=== PATIENT | female | born 1995 | race Caucasian/White ===

== ENCOUNTER → 2020-08-11 | Outpatient (REF) | payer OTHER | LOC: M LAB REF 11:15 | PROVIDERS: ATTEND Obstetrics & Gynecology | DX: Z32.01 Encounter for pregnancy test, result positive (principal) ==

== ENCOUNTER → 2020-08-12 | Outpatient (CLI) | payer OTHER ==
[2020-08-12 14:06] LABS: HEMATOCRIT 37.8 % (36.0-47.0); HEMOGLOBIN 11.9 g/dl (12.0-15.5); MEAN CORPUSCULAR HEMOGLOBIN 28.3 pg (27.0-33.0); MEAN CORPUSCULAR HGB CONC 31.5 g/dl (32.0-36.5); PLATELET COUNT, AUTOMATED 364 10^3/uL (150-450); WHITE BLOOD COUNT 12.7 10^3/uL (4.0-10.0)
[2020-08-12 15:36] LABS: HCG, SERUM QUANTITATIVE 7290 MIU/ML; HEPATITIS B SURFACE ANTIGEN NEGATIVE (NEGATIVE); HIV 1&2 SCREEN CENTAUR NEGATIVE (NEGATIVE)
[2020-08-12 18:32] LABS: HEMOGLOBIN A1c 5.3 %
== END ==
LOC: M LAB 13:19
PROVIDERS: ATTEND Obstetrics & Gynecology
DX: Z32.01 Encounter for pregnancy test, result positive (principal)

== ENCOUNTER → 2020-08-14 | Outpatient (CLI) | payer OTHER ==
--- NOTE | 2020-08-14 14:53 | REP ---
INDICATION: DATING/VIABILITY. Supervision of COMPARISON: None. TECHNIQUE: Transabdominal obstetric sonography. Transvaginal scanning is also included. FINDINGS: Scanning through the gravid uterus demonstrates a single intrauterine gestation in a free-floating lie. No motion or cardiac motion was observed at transabdominal or transvaginal imaging consistent with intrauterine demise. The crown-rump length of the embryonic pole is 1.9 cm. This would correlate with an 8 week 3 day gestational age estimate. Closed cervical length is measured at 4.4 cm. IMPRESSION: Intrauterine demise at 8 weeks 3 days by crown-rump length. No cardiac motion or pole motion seen. No extra uterine abnormality. <Electronically signed by Darian Fischer > 08/14/20 [id number]
== END ==
LOC: M WHC 13:35
PROVIDERS: ATTEND Obstetrics & Gynecology
DX: O36.4XX0 Maternal care for intrauterine death, not applicable or unspecified (principal); Z3A.08 8 weeks gestation of pregnancy

== ENCOUNTER 2020-08-21 12:30 | Emergency (ER) | payer OTHER ==
[~2020-08-21] VITALS: Ht 157.5 cm; Wt 181.4 kg
--- OUTSIDE RECORDS SUMMARY | 2020-08-21 12:39 | CCD ---
Author Author [facility] Organization [facility] Address Unknown Phone Unavailable Care Team Providers Care Parcel Post Truck Driver Name Role Phone Dodard, Leonidas DO Unavailable Unavailable Dodard, Leonidas DO Unavailable Unavailable Dodard, Leonidas DO Unavailable Unavailable Dodard, Leonidas DO Unavailable Unavailable Dodard, Leonidas DO Unavailable Unavailable Dodard, Leonidas DO Unavailable Unavailable Dodard, Leonidas DO Unavailable Unavailable Dodard, Leonidas DO Unavailable Unavailable Dodard, Leonidas DO Unavailable Unavailable Dodard, Leonidas DO Unavailable Unavailable Dodard, Leonidas DO Unavailable Unavailable Dodard, Leonidas DO Unavailable Unavailable Dodard, Leonidas DO Unavailable Unavailable Dodard, Leonidas DO Unavailable Unavailable Dodard, Leonidas DO Unavailable Unavailable Dodard, Leonidas DO Unavailable Unavailable Dodard, Leonidas DO Unavailable Unavailable Dodard, Leonidas DO Unavailable Unavailable Dodard, Leonidas DO Unavailable Unavailable Dodard, Leonidas DO Unavailable Unavailable Dodard, Leonidas DO Unavailable Unavailable Dodard, Leonidas DO Unavailable Unavailable Dodard, Leonidas DO Unavailable Unavailable Dodard, Leonidas DO Unavailable Unavailable Dodard, Leonidas DO Unavailable Unavailable Dodard, Leonidas DO Unavailable Unavailable Dodard, Leonidas DO Unavailable Unavailable Dodard, Leonidas DO Unavailable Unavailable Dodard, Leonidas DO Unavailable Unavailable Dodard, Leonidas DO Unavailable Unavailable Dodard, Leonidas DO Unavailable Unavailable Dodard, Leonidas DO Unavailable Unavailable Dodard, Leonidas DO Unavailable Unavailable Dodard, Leonidas DO Unavailable Unavailable Dodard, Leonidas DO Unavailable Unavailable Dodard, Leonidas DO Unavailable Unavailable Dodard, Leonidas DO Unavailable Unavailable Dodard, Leonidas DO Unavailable Unavailable Dodard, Leonidas DO Unavailable Unavailable Dodard, Leonidas DO Unavailable Unavailable Dodard, Leonidas DO Unavailable Unavailable Dodard, Leonidas DO Unavailable Unavailable Dodard, Leonidas DO Unavailable Unavailable Dodard, Leonidas DO Unavailable Unavailable NO, PCP Unavailable Unavailable Re-disclosure Warning The records that you are about to access may contain information from federally-assisted alcohol or drug abuse programs. If such information is present, then the following federally mandated warning applies: This information has been disclosed to you from records protected by federal confidentiality rules (42 CFR part 2). The federal rules prohibit you from making any further disclosure of this information unless further disclosure is expressly permitted by the written consent of the person to whom it pertains or as otherwise permitted by 42 CFR part 2. A general authorization for the release of medical or other information is NOT sufficient for this purpose. The Federal rules restrict any use of the information to criminally investigate or prosecute any alcohol or drug abuse patient.The records that you are about to access may contain highly sensitive health information, the redisclosure of which is protected by Article 27-F of the [facility] [place] Public Health law. If you continue you may have access to information: Regarding HIV / AIDS; Provided by facilities licensed or operated by the [facility] [place] Office of Mental Health; or Provided by the [facility] [place] Office for People With Developmental Disabilities. If such information is present, then the following [facility] [place] mandated warning applies: This information has been disclosed to you from confidential records which are protected by state law. State law prohibits you from making any further disclosure of this information without the specific written consent of the person to whom it pertains, or as otherwise permitted by law. Any unauthorized further disclosure in violation of state law may result in a fine or skilled nursing sentence or both. A general authorization for the release of medical or other information is NOT sufficient authorization for further disc losure. Allergies and Adverse Reactions Type Description Substance Reaction Status Data Source(s ) No Known Drug Allergies No Known Drug Allergies [facility] No Known Environmental Allergies No Known Environmental Al lergies [facility] No Known Food Allergies No Known Food Allergies [facility] Encounters Encounter Providers Location Date Indications Data Source(s ) Outpatient Attender: Leonidas De Leon DOConsultant: PCP NO 08/21/2020 08:25:18 AM [facility] Outpatient Attender: Leonidas CERONonsultant: PCP NO 08/19/2020 04:22:00 PM EST - 08/19/2020 05:22:00 PM [facility] Outpatient Attender: Leonidas CERONonsultant: PCP NO 08/19/2020 09:52:55 AM EST - 08/20/2020 12:35:00 PM [facility] Patient discharged. Outpatient Attender: Leonidas CERONonsultant: PCP NO 08/19/2020 07:24:14 AM EST - 08/19/2020 01:29:00 PM [facility] l Patient discharged. Insurance Providers Payer name Policy type / Coverage type Policy ID Covered green party ID Covered green party's relationship to umana Policy Umana Plan Information DANNY [id number] SP [id number] 200 [place] [id number] 18 [id number] [place] O [id number] S [id number] Problems, Conditions, and Diagnoses Code Display Name Description Problem Type Effective Dates Data Source(s) R99 Ill-defined and unknown cause of mortali ty Ill-defined and unknown cause of mortality Diagnosis 08/19/2020 01:29:00 PM [facility] Results ID Date Data Source [id number] 08/19/2020 10:14:00 PM [facility] Name Value Range Interpretation Code Description Data Kay rce(s) Supporting Document(s) ABO group [Type] in Blood O [facility] Rh [Type] in Blood POSITIVE [facility] AB SCREEN NEGATIVE NORMAL: NEGATIVE [facility] { ABO/RH REENTER O POSTIIVE{ AB SCREEN RE-ENTER NEGATIVE ID Date Data Source [id number] 08/19/2020 05:00:00 PM [facility] Name Value Range Interpretation Code Description Data Kay rce(s) Supporting Document(s) CBC NO DIFF [facility] ital COMPLETE BLOOD COUNT Leukocytes [#/volume] in Blood by Automated count 13.2 10^3/uL 4.2 - 11.0 H [facility] Erythrocytes [#/volume] in Blood by Automated count 4.17 10^6/uL 4. 20 - 5.40 L [facility] Hemoglobin [Mass/volume] in Blood 12.3 g/dL 12.0 - 16.0 [facility] Hematocrit [Volume Fraction] of Blood by Automated count 37.6 % 3 7.0 - 47.0 [facility] Erythrocyte mean corpuscular volume [Entitic volume] by Auto mated count 90.2 fL 81.0 - 101 [facility] Erythrocyte mean corpuscular hemoglobin [Entitic mass] by Automated count 29.5 pg 27.0 - 34.0 [facility] Erythrocyte mean corpuscular hemoglobin concentration [Mass/volume] by Automated count 32.7 g/dL 31.0 - 36.0 [facility] Erythrocyte distribution width [Ratio] by Automated count 12.9 % 11.5 - 14.5 [facility] Platelets [#/volume] in Blood by Automated count 387 10^3/uL 150 - 45 0 [facility] Platelet mean volume [Entitic volume] in Blood by Automated count 10.0 fL 7.4 - 10.4 [facility] ID Date Data Source [id number] 04/30/2020 12:00:00 AM EDT [facility] Name Value Range Interpretation Code Description Data Kay rce(s) Supporting Document(s) SARS coronavirus 2 RNA [Presence] in Res piratory specimen by TYRELL with probe detection [facility] This lab was ordered by Jayne Burris and reported by [facility]. Procedure
[2020-08-21] MEDS ORDERED: MAPA500C PO (12:44)
[2020-08-21] MEDS ORDERED: KETOROLAC 30 MG/ML 1ML VIAL IV ONE (13:30)
[2020-08-21] MEDS ORDERED: NS 1,000 ML IV ONE (13:30)
--- OUTSIDE RECORDS SUMMARY | 2020-08-21 13:31 | CCD ---
Author Author [facility] Organization [facility] Address Unknown Phone Unavailable Care Team Providers Care Teacher Selection Specialist Name Role Phone Dodard, Leonidas DO Unavailable [...] is protected by Article 27-F of the [facility] Public Health law. If you continue you may have access to information: Regarding HIV / AIDS; Provided by facilities licensed or operated by the [facility] Office of Mental Health; or Provided by the [facility] Office for People With Developmental Disabilities. If such information is present, then the following [facility] mandated warning applies: This information has been [...] law may result in a fine or retirement sentence or both. A general authorization for the release of medical or other information is NOT sufficient authorization for further disc losure. Allergies and Adverse Reactions Type Description Substance Reaction Status Data Source(s ) No Known Drug Allergies No Known Drug Allergies [facility] No Known Environmental Allergies No Known Environmental Al lergies [facility] No Known Food Allergies No Known Food Allergies [facility] Encounters Encounter Providers Location Date Indications Data Source(s ) Outpatient Attender: Leonidas De Leon DOConsultant: PCP NO 08/21/2020 08:25:18 AM [facility] Outpatient Attender: Leonidas CERONonsultant: PCP NO 08/19/2020 04:22:00 PM EST - 08/19/2020 05:22:00 PM [facility] Outpatient Attender: Leonidas CERONonsultant: PCP NO 08/19/2020 09:52:55 AM EST - 08/20/2020 12:35:00 PM [facility] Patient discharged. Outpatient Attender: Leonidas CERONonsultant: PCP NO 08/19/2020 07:24:14 AM EST - 08/19/2020 01:29:00 PM [facility] Patient discharged. Insurance Providers Payer name Policy type / Coverage type Policy ID Covered alliance party ID Covered alliance party's relationship to umana Policy Umana Plan Information DANNY [id number] SP [id number] 200 [place] [id number] 18 [id number] [place] [id number] S [id number] Problems, Conditions, and Diagnoses Code Display Name Description Problem Type Effective Dates Data Source(s) R99 Ill-defined and unknown cause of mortali ty Ill-defined and unknown cause of mortality Diagnosis 08/19/2020 01:29:00 PM [facility] Results ID Date Data Source [id number] 08/19/2020 10:14:00 PM [facility] Name Value Range Interpretation Code Description Data Kay rce(s) Supporting Document(s) ABO group [Type] in Blood O [facility] Rh [Type] in Blood POSITIVE [facility] AB SCREEN NEGATIVE NORMAL: NEGATIVE [facility] { ABO/RH REENTER O POSTIIVE{ AB SCREEN RE-ENTER NEGATIVE ID Date Data Source [id number] 08/19/2020 05:00:00 PM [facility] Name Value Range Interpretation Code Description Data Kay rce(s) Supporting Document(s) CBC NO DIFF [facility] ital COMPLETE BLOOD COUNT Leukocytes [#/volume] in Blood by Automated count 13.2 10^3/uL 4.2 - 11.0 H [facility] Erythrocytes [#/volume] in Blood by Automated count 4.17 10^6/uL 4. 20 - 5.40 L [facility] Hemoglobin [Mass/volume] in Blood 12.3 g/dL 12.0 - 16.0 [facility] Hematocrit [Volume Fraction] of Blood by Automated count 37.6 % 3 7.0 - 47.0 [facility] Erythrocyte mean corpuscular volume [Entitic volume] by Auto mated count 90.2 fL 81.0 - 101 [facility] Erythrocyte mean corpuscular hemoglobin [Entitic mass] by Automated count 29.5 pg 27.0 - 34.0 [facility] Erythrocyte mean corpuscular hemoglobin concentration [Mass/volume] by Automated count 32.7 g/dL 31.0 - 36.0 [facility] Erythrocyte distribution width [Ratio] by Automated count 12.9 % 11.5 - 14.5 [facility] Platelets [#/volume] in Blood by Automated count 387 10^3/uL 150 - 45 0 [facility] Platelet mean volume [Entitic volume] in Blood by Automated count 10.0 fL 7.4 - 10.4 [facility] ID Date Data Source [id number] 04/30/2020 12:00:00 AM EDT [facility] Name Value Range Interpretation Code Description Data Kay rce(s) Supporting Document(s) SARS coronavirus 2 RNA [Presence] in Res piratory specimen by TYRELL with probe detection [facility] This lab was ordered by Jayne Burris and reported by [employer]. Procedure
[2020-08-21 14:05] LABS: BASO # 0.1 10^3/uL (0.0-0.2); BASO % 0.4 % (0.0-1.0); EOS # 0.1 10^3/uL (0.0-0.5); EOS % 0.7 % (0.0-3.0); LYMPH # 2.6 10^3/uL (1.5-5.0); LYMPH % 14.8 % (24.0-44.0); MEAN CORPUSCULAR HEMOGLOBIN 29.3 pg (27.0-33.0); MEAN CORPUSCULAR HGB CONC 32.4 g/dl (32.0-36.5); MEAN CORPUSCULAR VOLUME 90.2 fl (80.0-96.0); MONO # 1.2 10^3/uL (0.0-0.8); MONO % 6.8 % (2.0-8.0); NEUTROPHILS # 13.2 10^3/uL (1.5-8.5); NEUTROPHILS % 76.1 % (36.0-66.0); PLATELET COUNT, AUTOMATED 360 10^3/uL (150-450); WHITE BLOOD COUNT 17.4 10^3/uL (4.0-10.0)
[2020-08-21 15:18] LABS: CHLAMYDIA DNA AMPLIFICATION NEGATIVE (NEGATIVE); GC DNA AMPLIFICATION NEGATIVE (NEGATIVE)
[2020-08-21 16:13] LABS: RSV AMPLIFICATION NEGATIVE (NEGATIVE)
--- NOTE | 2020-08-21 16:34 | REP ---
INDICATION: recently told demise, see if any RPOC. COMPARISON: 08/14/2020. TECHNIQUE: Real-time sonographic evaluation of pelvis performed. FINDINGS: Intrauterine gestational sac is seen containing a pole. The crown-rump length is 19 mm corresponding to an estimated gestational age of 8 weeks 3 days. No heart motion is detected. Findings are consistent with intrauterine demise. The uterus measures 15.5 x 7.4 x 6.5 cm. The ovaries are not visualized. IMPRESSION: Intrauterine demise of a gestational 8 weeks 3 days of age, crown-rump length 19 mm. No heart motion detected. No change since prior study. <Electronically signed by Alvaro Edwards > 08/21/20 [id number]
[2020-08-21 16:40] VITALS: BP 121/59
[2020-08-23] MEDS ORDERED: OXYC1TAB23 PO (12:13)
[2020-08-23] MEDS ORDERED: IBUP80TA PO (12:13)
== END 2020-08-21 16:42 | disposition home or self-care (01) ==
LOC: M ED 12:30
DX: O36.4XX0 Maternal care for intrauterine death, not applicable or unspecified (principal); Z87.891 Personal history of nicotine dependence; O99.321 Drug use complicating pregnancy, first trimester; F12.20 Cannabis dependence, uncomplicated; Z3A.08 8 weeks gestation of pregnancy
CPT/HCPCS: 76801; 80047; 84702; 85025; 86850; 86900; 86901; 87210; 87631; 87661; 96361; 96374; 99284; J1885

== ENCOUNTER → 2020-08-23 | Day surgery (SDC) | payer OTHER ==
[~2020-08-23] VITALS: Ht 157.5 cm; Wt 181.4 kg
[~2020-08-23] MED LIST: ACETAMINOPHEN 1000MG 100ML IV BTL (OFIRMEV) (J0131 PER 10MG) As Ordered ONE; DOXYCYCLINE HYCLATE 100MG TABLET PO ONE; DOXYCYCLINE HYCLATE 100MG/10ML VIAL As Ordered ONE; HYDROMORPHONE HCL 0.5 MG/ 0.5 ML SYRINGE (J1170 PER 1) IV PRN; IBUP80TA PO; KETOROLAC 30 MG/ML 1ML VIAL IV ONE; LIDOCAINE 2% 100MG/5ML SDV (FOR ANES.) As Ordered ONE; LR 1,000 ML IV SCH; MAPA500C PO; METHYLERGONOVINE MALEATE 0.2 MG/ML VIAL (J2210) As Ordered ONE; MIDAZOLAM INJ 2MG/2ML VIAL (J2250 PER 1MG) As Ordered ONE; MORPHINE 4 MG/ML 1ML VIAL/SYRINGE (J2270) IV ONE; NS 1,000 ML IV ONE; ONDANSETRON 4MG/2ML VIAL As Ordered ONE; ONDANSETRON 4MG/2ML VIAL IV ONE; ONDANSETRON 4MG/2ML VIAL IV PRN; OXYC1TAB23 PO; SILVER NITRATE APPLICATOR As Ordered ONE; dexameTHASONE 4 MG/ML 1ML VIAL (J1100 PER 1MG) As Ordered ONE; fentaNYL 100 MCG/2 ML INJECTION (J3010) As Ordered ONE; fentaNYL 100 MCG/2 ML INJECTION (J3010) IV PRN; oxyCODONE 5MG TAB PO PRN; propofoL 200 MG/20 ML VIAL As Ordered ONE
--- OUTSIDE RECORDS SUMMARY | 2020-08-23 07:03 | CCD ---
Author Author [facility] Organization [facility] Address Unknown Phone Unavailable Care Team Providers Care Travel Occupational Therapist Name Role Phone Dodard, Leonidas DO Unavailable [...] is protected by Article 27-F of the [facility] Public Health law. If you continue you may have access to information: Regarding HIV / AIDS; Provided by facilities licensed or operated by the [facility] Office of Mental Health; or Provided by the [facility] Office for People With Developmental Disabilities. If such information is present, then the following [facility] mandated warning applies: This information has been [...] law may result in a fine or prison sentence or both. A general authorization for the release of medical or other information is NOT sufficient authorization for further disc losure. Allergies and Adverse Reactions Type Description Substance Reaction Status Data Source(s ) No Known Drug Allergies No Known Drug Allergies [facility] No Known Environmental Allergies No Known Environmental Al lergies [facility] No Known Food Allergies No Known Food Allergies [facility] Encounters Encounter Providers Location Date Indications Data Source(s ) Outpatient Attender: Leonidas De Leon DOConsultant: PCP NO 08/21/2020 08:25:18 AM [facility] Outpatient Attender: Leonidas CERONonsultant: PCP NO 08/19/2020 04:22:00 PM EST - 08/19/2020 05:22:00 PM [facility] Outpatient Attender: Leonidas CERONonsultant: PCP NO 08/19/2020 09:52:55 AM EST - 08/20/2020 12:35:00 PM [facility] Patient discharged. Outpatient Attender: Leonidas CERONonsultant: PCP NO 08/19/2020 07:24:14 AM EST - 08/19/2020 01:29:00 PM [facility] l Patient discharged. Insurance Providers Payer name Policy type / Coverage type Policy ID Covered constitution party ID Covered constitution party's relationship to umana Policy Umana Plan Information DANNY [id number] SP [id number] 200 [place] [id number] 18 [id number] [place] O [id number] S 74 [id number] Problems, Conditions, and Diagnoses Code Display Name Description Problem Type Effective Dates Data Source(s) R99 Ill-defined and unknown cause of mortali ty Ill-defined and unknown cause of mortality Diagnosis 08/19/2020 01:29:00 PM [facility] Results ID Date Data Source [id number] 08/19/2020 10:14:00 PM [facility] Name Value Range Interpretation Code Description Data Kay rce(s) Supporting Document(s) ABO group [Type] in Blood O [facility] Rh [Type] in Blood POSITIVE [facility] AB SCREEN NEGATIVE NORMAL: NEGATIVE [facility] { ABO/RH REENTER O POSTIIVE{ AB SCREEN RE-ENTER NEGATIVE ID Date Data Source [id number] 08/19/2020 05:00:00 PM [facility] Name Value Range Interpretation Code Description Data Kay rce(s) Supporting Document(s) CBC NO DIFF [facility] ital COMPLETE BLOOD COUNT Leukocytes [#/volume] in Blood by Automated count 13.2 10^3/uL 4.2 - 11.0 H [facility] Erythrocytes [#/volume] in Blood by Automated count 4.17 10^6/uL 4. 20 - 5.40 L [facility] Hemoglobin [Mass/volume] in Blood 12.3 g/dL 12.0 - 16.0 [facility] Hematocrit [Volume Fraction] of Blood by Automated count 37.6 % 3 7.0 - 47.0 [facility] Erythrocyte mean corpuscular volume [Entitic volume] by Auto mated count 90.2 fL 81.0 - 101 [facility] Erythrocyte mean corpuscular hemoglobin [Entitic mass] by Automated count 29.5 pg 27.0 - 34.0 [facility] Erythrocyte mean corpuscular hemoglobin concentration [Mass/volume] by Automated count 32.7 g/dL 31.0 - 36.0 [facility] Erythrocyte distribution width [Ratio] by Automated count 12.9 % 11.5 - 14.5 [facility] Platelets [#/volume] in Blood by Automated count 387 10^3/uL 150 - 45 0 [facility] Platelet mean volume [Entitic volume] in Blood by Automated count 10.0 fL 7.4 - 10.4 [facility] ID Date Data Source [id number] 04/30/2020 12:00:00 AM EDT [facility] Name Value Range Interpretation Code Description Data Kay rce(s) Supporting Document(s) SARS coronavirus 2 RNA [Presence] in Res piratory specimen by TYRELL with probe detection [facility] This lab was ordered by Jayne Burris and reported by [employer]. Procedure
--- OUTSIDE RECORDS SUMMARY | 2020-08-23 08:02 | CCD ---
Author Author [facility] Organization [facility] Address Unknown Phone Unavailable Care Team Providers Care Research Program Manager Name Role Phone Dodard, Leonidas DO Unavailable [...] is protected by Article 27-F of the [facility] Public Health law. If you continue you may have access to information: Regarding HIV / AIDS; Provided by facilities licensed or operated by the [facility] Office of Mental Health; or Provided by the [facility] Office for People With Developmental Disabilities. If such information is present, then the following [facility] mandated warning applies: This information has been [...] law may result in a fine or long term sentence or both. A general authorization for the release of medical or other information is NOT sufficient authorization for further disc losure. Allergies and Adverse Reactions Type Description Substance Reaction Status Data Source(s ) No Known Drug Allergies No Known Drug Allergies [facility] No Known Environmental Allergies No Known Environmental Al lergies [facility] No Known Food Allergies No Known Food Allergies [facility] Encounters Encounter Providers Location Date Indications Data Source(s ) Outpatient Attender: Leonidas De Leon DOConsultant: PCP NO 08/21/2020 08:25:18 AM [facility] Outpatient Attender: Leonidas CERONonsultant: PCP NO 08/19/2020 04:22:00 PM EST - 08/19/2020 05:22:00 PM [facility] Outpatient Attender: Leonidas CERONonsultant: PCP NO 08/19/2020 09:52:55 AM EST - 08/20/2020 12:35:00 PM [facility] Patient discharged. Outpatient Attender: Leonidas CERONonsultant: PCP NO 08/19/2020 07:24:14 AM EST - 08/19/2020 01:29:00 PM [facility] l Patient discharged. Insurance Providers Payer name Policy type / Coverage type Policy ID Covered democrat ID Covered democrat's relationship to umana Policy Umana Plan Information DANNY [id number] SP [id number] 200 [place] [id number] 18 [id number] [place] O [id number] S [id number] Problems, Conditions, and Diagnoses Code Display Name Description Problem Type Effective Dates Data Source(s) R99 Ill-defined and unknown cause of mortali ty Ill-defined and unknown cause of mortality Diagnosis 08/19/2020 01:29:00 PM [facility] Results ID Date Data Source [id number] 08/19/2020 10:14:00 PM [facility] Name Value Range Interpretation Code Description Data Kay rce(s) Supporting Document(s) ABO group [Type] in Blood O [facility] Rh [Type] in Blood POSITIVE [facility] AB SCREEN NEGATIVE NORMAL: NEGATIVE [facility] { ABO/RH REENTER O POSTIIVE{ AB SCREEN RE-ENTER NEGATIVE ID Date Data Source [id number] 08/19/2020 05:00:00 PM [facility] Name Value Range Interpretation Code Description Data Kay rce(s) Supporting Document(s) CBC NO DIFF [facility] ital COMPLETE BLOOD COUNT Leukocytes [#/volume] in Blood by Automated count 13.2 10^3/uL 4.2 - 11.0 H [facility] Erythrocytes [#/volume] in Blood by Automated count 4.17 10^6/uL 4. 20 - 5.40 L [facility] Hemoglobin [Mass/volume] in Blood 12.3 g/dL 12.0 - 16.0 [facility] Hematocrit [Volume Fraction] of Blood by Automated count 37.6 % 3 7.0 - 47.0 [facility] Erythrocyte mean corpuscular volume [Entitic volume] by Auto mated count 90.2 fL 81.0 - 101 [facility] Erythrocyte mean corpuscular hemoglobin [Entitic mass] by Automated count 29.5 pg 27.0 - 34.0 [facility] Erythrocyte mean corpuscular hemoglobin concentration [Mass/volume] by Automated count 32.7 g/dL 31.0 - 36.0 [facility] Erythrocyte distribution width [Ratio] by Automated count 12.9 % 11.5 - 14.5 [facility] Platelets [#/volume] in Blood by Automated count 387 10^3/uL 150 - 45 0 [facility] Platelet mean volume [Entitic volume] in Blood by Automated count 10.0 fL 7.4 - 10.4 [facility] ID Date Data Source [id number] 04/30/2020 12:00:00 AM EDT [facility] Name Value Range Interpretation Code Description Data Kay rce(s) Supporting Document(s) SARS coronavirus 2 RNA [Presence] in Res piratory specimen by TYRELL with probe detection [facility] This lab was ordered by Jayne Burris and reported by [employer]. Procedure
[2020-08-23 08:04] LABS: BASO # 0.1 10^3/uL (0.0-0.2); BASO % 0.4 % (0.0-1.0); EOS # 0.1 10^3/uL (0.0-0.5); EOS % 0.7 % (0.0-3.0); HEMATOCRIT 37.2 % (36.0-47.0); HEMOGLOBIN 11.5 g/dl (12.0-15.5); LYMPH # 1.4 10^3/uL (1.5-5.0); LYMPH % 10.5 % (24.0-44.0); MEAN CORPUSCULAR HEMOGLOBIN 28.2 pg (27.0-33.0); MEAN CORPUSCULAR HGB CONC 30.9 g/dl (32.0-36.5); MEAN CORPUSCULAR VOLUME 91.2 fl (80.0-96.0); MONO # 0.7 10^3/uL (0.0-0.8); MONO % 5.4 % (2.0-8.0); NEUTROPHILS # 10.7 10^3/uL (1.5-8.5); NEUTROPHILS % 81.2 % (36.0-66.0); PLATELET COUNT, AUTOMATED 317 10^3/uL (150-450); RED BLOOD COUNT 4.08 10^6/uL (4.00-5.40); WHITE BLOOD COUNT 13.1 10^3/uL (4.0-10.0)
[2020-08-23 08:36] LABS: BLOOD UREA NITROGEN 12 MG/DL (7-18); CALCIUM LEVEL 8.6 MG/DL (8.5-10.1); CARBON DIOXIDE LEVEL 24 MEQ/L (21-32); CHLORIDE LEVEL 107 MEQ/L (98-107); CREATININE FOR GFR 0.78 MG/DL (0.55-1.30); GLOMERULAR FILTRATION RATE > 60.0 (>60); GLUCOSE, FASTING 125 MG/DL (70-100); HCG, SERUM QUANTITATIVE 399 MIU/ML; POTASSIUM SERUM 3.7 MEQ/L (3.5-5.1); SODIUM LEVEL 141 MEQ/L (136-145)
--- NOTE | 2020-08-23 09:30 | REP ---
INDICATION: known demise, worsening bleeding, severe pain. COMPARISON: Comparison sonographic findings August 14, 2020 and August 21, 2020.. TECHNIQUE: Transabdominal scanning is performed. FINDINGS: Enlarged uterus is seen with dimensions of 16.1 x 6.1 x 8.8 cm. In the fundus, endometrium is somewhat thickened 2.4 cm. There is a oval-shaped anechoic sac-like structure distending the lower uterine segment and cervical endometrium measuring 8.6 x 2.6 x 1.7 cm. Hypoechoic to anechoic fluid is seen within this. No parts are noted. Findings most compatible with incomplete AB. Neither ovary could be seen transabdominally. No free fluid is noted. IMPRESSION: Findings consistent with incomplete AB in progress. 8.6 x 2.6 x 1.7 cm sac like structure distending the lower uterine segment and cervical endometrium. Embryonic pole no longer visible. <Electronically signed by Darian Fischer > 08/23/20 0948
--- OUTSIDE RECORDS SUMMARY | 2020-08-23 10:49 | CCD ---
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 If you continue you may have access to information: Regarding HIV / AIDS; Provided by facilities licensed or operated by the [facility] Office of Mental Health; or Provided by the [facility] Office for People With Developmental Disabilities. If such information is present, then the following [facility] mandated warning applies: This information has [...] law may result in a fine or custodial sentence or both. A general authorization for the release of medical or other information is NOT sufficient authorization for further disc losure. Allergies and Adverse Reactions Type Description Substance Reaction Status Data Source(s ) No Known Drug Allergies No Known Drug Allergies [facility] No Known Environmental Allergies No Known Environmental Al lergies [facility] No Known Food Allergies No Known Food Allergies [facility] Encounters Encounter Providers Location Date Indications Data Source(s ) Outpatient Attender: Leonidas De Leon DOConsultant: PCP NO 08/21/2020 08:25:18 AM [facility] Outpatient Attender: Leonidas De Leon DOConsultant: PCP NO 08/19/2020 04:22:00 PM EST - 08/19/2020 05:22:00 PM EST [facility] Outpatient Attender: Leonidas CERONonsultant: PCP NO 08/19/2020 09:52:55 AM EST - 08/20/2020 12:35:00 PM EST [facility] Patient discharged. Outpatient Attender: Leonidas CERONonsultant: PCP NO 08/19/2020 07:24:14 AM EST - 08/19/2020 01:29:00 PM [facility] Patient discharged. Insurance Providers Payer name Policy type / Coverage type Policy ID Covered alliance party ID Covered alliance party's relationship to umana Policy U[employer] Plan Information DANNY [id number] SP [id number] [facility] [place] [id number] 18 [id number] [place] [id number] S [id number] Problems, Conditions, and Diagnoses Code Display Name Description Problem Type Effective Dates Data Source(s) R99 Ill-defined and unknown cause of mortali ty Ill-defined and unknown cause of mortality Diagnosis 08/19/2020 01:29:00 PM [facility] Results ID Date Data Source [id number] 08/21/2020 03:21:00 PM EST [facility] Name Value Range Interpretation Code Description Data Kay rce(s) Supporting Document(s) SARS coronavirus 2 RNA [Presence] in Res piratory specimen by TYRELL with probe detection NEGATIVE [facility] This lab was ordered by [facility] a nd reported by [facility]. ID Date Data Source [id number] 08/19/2020 04:33:00 PM EST [facility] Name Value Range Interpretation Code Description Data Kay rce(s) Supporting Document(s) SARS coronavirus 2 RNA Not Detected [facility] This lab was ordered by [facility] and reported by [facility]. ID Date Data Source [id number] 08/19/2020 10:14:00 PM [facility] Name Value Range Interpretation Code Description Data Kay rce(s) Supporting Document(s) ABO group [Type] in Blood O [facility] Rh [Type] in Blood POSITIVE [facility] AB SCREEN NEGATIVE NORMAL: NEGATIVE [facility] { ABO/RH REENTER O POSTIIVE{ AB SCREEN RE-ENTER NEGATIVE ID Date Data Source [id number] 08/19/2020 05:00:00 PM [facility] Name Value Range Interpretation Code Description Data Kay rce(s) Supporting Document(s) CBC NO DIFF [facility] ital COMPLETE BLOOD COUNT Leukocytes [#/volume] in Blood by Automated count 13.2 10^3/uL 4.2 - 11.0 H [facility] Erythrocytes [#/volume] in Blood by Automated count 4.17 10^6/uL 4. 20 - 5.40 L [facility] Hemoglobin [Mass/volume] in Blood 12.3 g/dL 12.0 - 16.0 [facility] Hematocrit [Volume Fraction] of Blood by Automated count 37.6 % 3 7.0 - 47.0 [facility] Erythrocyte mean corpuscular volume [Entitic volume] by Auto mated count 90.2 fL 81.0 - 101 [facility] Erythrocyte mean corpuscular hemoglobin [Entitic mass] by Automated count 29.5 pg 27.0 - 34.0 [facility] Erythrocyte mean corpuscular hemoglobin concentration [Mass/volume] by Automated count 32.7 g/dL 31.0 - 36.0 [facility] Erythrocyte distribution width [Ratio] by Automated count 12.9 % 11.5 - 14.5 [facility] Platelets [#/volume] in Blood by Automated count 387 10^3/uL 150 - 45 0 [facility] Platelet mean volume [Entitic volume] in Blood by Automated count 10.0 fL 7.4 - 10.4 [facility] ID Date Data Source [id number] 04/30/2020 12:00:00 AM EDT [facility] Name Value Range Interpretation Code Description Data Kay rce(s) Supporting Document(s) SARS coronavirus 2 RNA [Presence] in Res piratory specimen by TYRELL with probe detection [facility] and reported by [facility]. Procedure
--- NOTE | 2020-08-23 12:12 | ROOPDOC ---
[facility] Report Of Operation Report of Operation DATE OF PROCEDURE: 08/23/2020 PREPROCEDURE DIAGNOSES: First trimester miscarriage, incomplete . POSTPROCEDURE DIAGNOSES: Same. PROCEDURE: Suction D&C. SURGEON: Gayatri Zambrano DO FACOG IRON LAUNDER OPERATOR: none ANESTHESIA: General via LMA ESTIMATED BLOOD LOSS: Approximately 150 mL. IV FLUIDS REPLACED: 500 mL LR UOP: in and out cath, 200 mL UTEROTONIC: Methergine 0.2 mg IM 1 COMPLICATIONS: none. SPECIMENS: products of conception, intrauterine tissue. PREOPERATIVE / PROPHYLACTIC ANTIBIOTIC: Doxycycline 100mg IV x1. INTRAOPERATIVE FINDINGS/REMARKS:Uterus sounded to 10 cm, tissue removed consistent with products of conception upon gross examination. DESCRIPTION OF PROCEDURE: The patient was counseled, consented on the risks, benefits, indications and alternatives procedure. Informed consent was obtained. She was taken to the operating room with an IV running and placed on the operating table in dorsal supine position. Gen. anesthesia was administered and the airway was secured without any difficulty. She was prepared and draped in the normal sterile fashion. She was placed in the high lithotomy position. A time out was performed per protocol. The bladder was drained with a sterile in and out catheter. Sterile speculum was placed with good visualization of the cervix. The cervix was grasped with a single-tooth tenaculum at the anterior lip and downward traction was applied. The cervix was sequentially dilated with Luis Antonio dilators up to a #20. A size 9 curved Vacurette was placed trans-cervically into the intrauterine cavity. Suction was activated. Tissue and blood return was consistent with products of conception. After removal of the Vacurette, a sharp curettage was performed with minimal tissue and blood return. Minimal bleeding from the cervical os was noted. The patient's vitals were normal and stable. The decision was made to conclude the procedure. Single-tooth tenaculum was removed from the cervix and the tenaculum sites were noted to be hemostatic. Again, minimal bleeding from the cervical os was noted. All instruments were removed from the vagina. Sponge and instrument counts were correct per protocol. The patient was transferred to the PACU in good and stable condition. Gayatri Zambrano DO FACOG. GAYATRI ZAMBRANO DO Aug 23, 2020 12:12
[2020-08-23 13:01] VITALS: BP 114/66
== END | disposition home or self-care (01) ==
LOC: M ED 06:53 → M SDC 06:54
PROVIDERS: ATTEND Obstetrics & Gynecology
DX: O02.1 Missed abortion (principal); E66.9 Obesity, unspecified; R56.9 Unspecified convulsions
CPT/HCPCS: 36415; 59812; 76801; 80048; 84702; 85025; 86850; 86900; 86901; 88305; 96360; 96361; 96374; 96375; 99284; J0131; J1100; J1885; J2210; J2250; J2270; J2405; J3010; U0002

== ENCOUNTER → 2020-12-04 | Outpatient (CLI) | payer OTHER ==
[~2020-12-04] MED LIST changes: -ACETAMINOPHEN 1000MG 100ML IV BTL (OFIRMEV) (J0131 PER 10MG) As Ordered ONE; -DOXYCYCLINE HYCLATE 100MG TABLET PO ONE; -DOXYCYCLINE HYCLATE 100MG/10ML VIAL As Ordered ONE; -HYDROMORPHONE HCL 0.5 MG/ 0.5 ML SYRINGE (J1170 PER 1) IV PRN; -KETOROLAC 30 MG/ML 1ML VIAL IV ONE; -LIDOCAINE 2% 100MG/5ML SDV (FOR ANES.) As Ordered ONE; -LR 1,000 ML IV SCH; -METHYLERGONOVINE MALEATE 0.2 MG/ML VIAL (J2210) As Ordered ONE; -MIDAZOLAM INJ 2MG/2ML VIAL (J2250 PER 1MG) As Ordered ONE; -MORPHINE 4 MG/ML 1ML VIAL/SYRINGE (J2270) IV ONE; -NS 1,000 ML IV ONE; -ONDANSETRON 4MG/2ML VIAL As Ordered ONE; -ONDANSETRON 4MG/2ML VIAL IV ONE; -ONDANSETRON 4MG/2ML VIAL IV PRN; -SILVER NITRATE APPLICATOR As Ordered ONE; -dexameTHASONE 4 MG/ML 1ML VIAL (J1100 PER 1MG) As Ordered ONE; -fentaNYL 100 MCG/2 ML INJECTION (J3010) As Ordered ONE; -fentaNYL 100 MCG/2 ML INJECTION (J3010) IV PRN; -oxyCODONE 5MG TAB PO PRN; -propofoL 200 MG/20 ML VIAL As Ordered ONE
[2020-12-04 14:15] LABS: HEMATOCRIT 40.4 % (36.0-47.0); MEAN CORPUSCULAR HEMOGLOBIN 28.7 pg (27.0-33.0); MEAN CORPUSCULAR HGB CONC 32.2 g/dl (32.0-36.5); MEAN CORPUSCULAR VOLUME 89.2 fl (80.0-96.0); PLATELET COUNT, AUTOMATED 353 10^3/uL (150-450); RED BLOOD COUNT 4.53 10^6/uL (4.00-5.40); WHITE BLOOD COUNT 11.4 10^3/uL (4.0-10.0)
[2020-12-04 14:48] LABS: CHOLESTEROL RISK RATIO 3.509 (<5)
[2020-12-04 15:04] LABS: HEMOGLOBIN A1c 5.1 %
== END ==
LOC: M LAB 13:12
PROVIDERS: ATTEND Physician Assistant
DX: H35.60 Retinal hemorrhage, unspecified eye (principal)

== ENCOUNTER 2020-12-21 14:42 | Emergency (ER) | payer OTHER ==
[~2020-12-21] VITALS: Ht 157.5 cm; Wt 174.3 kg
[2020-12-21] MEDS ORDERED: MULTTAB20 PO (14:49)
[2020-12-21] MEDS ORDERED: ZYRTTAB8 PO (14:49)
[2020-12-21 14:50] VITALS: BP 124/82
[2020-12-21] MEDS ORDERED: RABIES VACCINE HUMAN 2.5 INTERNATIONAL UNITS/ML VIAL (90675) IM ONE (17:05)
[2020-12-21] MEDS ORDERED: RABIES IMMUNE GLOBULIN 1500 INTERNATIONAL UNIT/5ML VIAL (90375) IM ONE ×2 (17:05→18:00)
[2020-12-21] MEDS ORDERED: RABIES IMMUNE GLOBULIN 300 INTERNATIONAL UNITS/1ML VIAL (90375) IM ONE (18:00)
== END 2020-12-21 18:05 | disposition home or self-care (01) ==
LOC: M ED 16:14
DX: S61.031A Puncture wound without foreign body of right thumb without damage to nail, initial encounter (principal); W55.01XA Bitten by cat, initial encounter; Y92.89 Other specified places as the place of occurrence of the external cause; F17.210 Nicotine dependence, cigarettes, uncomplicated

== ENCOUNTER 2020-12-24 07:56 | Emergency (ER) | payer OTHER ==
[~2020-12-24] VITALS: Ht 157.5 cm; Wt 172.5 kg
[2020-12-24 07:56] VITALS: BP 131/59
[~2020-12-24 07:56] MED LIST changes: +MULTTAB20 PO; +ZYRTTAB8 PO
[2020-12-24] MEDS ORDERED: RABIES VACCINE HUMAN 2.5 INTERNATIONAL UNITS/ML VIAL (90675) IM ONE (08:15)
[2020-12-24] MEDS ORDERED: BOOSTRIX/ADACEL VACCINE (DIPHTH/PERTUSS/ACELL/TETANUS) 0.5ML SYR IM ONE (08:35)
== END 2020-12-24 08:45 | disposition home or self-care (01) ==
LOC: M ED 07:56
DX: Z23 Encounter for immunization (principal)

== ENCOUNTER → 2021-11-03 | Outpatient (CLI) | payer OTHER ==
[2021-11-03 15:17] LABS: PROTEIN, URINE AUTO 1+ mg/dL (NEGATIVE)
[2021-11-03 15:19] LABS: HEMATOCRIT 34.1 % (36.0-47.0); HEMOGLOBIN 11.2 g/dl (12.0-15.5); MEAN CORPUSCULAR HEMOGLOBIN 28.9 pg (27.0-33.0); MEAN CORPUSCULAR HGB CONC 32.8 g/dl (32.0-36.5); MEAN CORPUSCULAR VOLUME 88.1 fl (80.0-96.0); PLATELET COUNT, AUTOMATED 353 10^3/uL (150-450); RED BLOOD COUNT 3.87 10^6/uL (4.00-5.40); WHITE BLOOD COUNT 11.7 10^3/uL (4.0-10.0)
[2021-11-03 15:47] LABS: ALT/SGPT 25 U/L (12-78); BLOOD UREA NITROGEN 5 MG/DL (7-18); CALCIUM LEVEL 9.5 MG/DL (8.5-10.1); CARBON DIOXIDE LEVEL 26 MEQ/L (21-32); CHLORIDE LEVEL 108 MEQ/L (98-107); CREATININE FOR GFR 0.51 MG/DL (0.55-1.30); GLOMERULAR FILTRATION RATE > 60.0 (>60); GLUCOSE, FASTING 79 MG/DL (70-100); POTASSIUM SERUM 4.5 MEQ/L (3.5-5.1); SODIUM LEVEL 140 MEQ/L (136-145)
[2021-11-03 15:48] LABS: BILIRUBIN,TOTAL 0.3 MG/DL (0.2-1.0); TOTAL PROTEIN 6.9 GM/DL (6.4-8.2)
== END ==
LOC: M PLALAB 12:06
PROVIDERS: ATTEND Specialist
DX: Z36.89 Encounter for other specified antenatal screening (principal)

== ENCOUNTER → 2021-11-12 | Outpatient (CLI) | payer OTHER | LOC: M LABSMTC 09:19 | PROVIDERS: ATTEND Specialist | DX: Z01.812 Encounter for preprocedural laboratory examination (principal); Z20.822 Contact with and (suspected) exposure to COVID-19 ==

== ENCOUNTER → 2022-03-21 | Outpatient (REF) ==
[~2022-03-21] MED LIST changes: +ACET500P3 PO; +PRENTAB9 PO; +TUMS750C5 PO
== END ==
LOC: M LABSMTC 09:54
PROVIDERS: ATTEND Family Medicine
DX: Z20.822 Contact with and (suspected) exposure to COVID-19 (principal)

== ENCOUNTER → 2022-07-26 | Outpatient (REF) ==
[2022-07-26 13:24] LABS: RSV AMPLIFICATION NEGATIVE (NEGATIVE)
== END ==
LOC: M LABSMTC 10:11
PROVIDERS: ATTEND Family Medicine
DX: Z20.822 Contact with and (suspected) exposure to COVID-19 (principal)

== ENCOUNTER 2022-11-03 10:00 | Outpatient (RCR) | payer OTHER | END 2022-11-06 | LOC: M PT 10:00 | PROVIDERS: ATTEND Orthopaedic Surgery Hand Surgery | DX: M76.61 Achilles tendinitis, right leg (principal) ==

== ENCOUNTER 2022-11-16 09:35 | Outpatient (RCR) | payer OTHER | END 2022-12-07 | LOC: M PT 09:35 | PROVIDERS: ATTEND Orthopaedic Surgery Hand Surgery | DX: M76.61 Achilles tendinitis, right leg (principal) ==

== ENCOUNTER → 2023-02-03 | Outpatient (CLI) | payer OTHER | LOC: M PLAIMG 10:41 | PROVIDERS: ATTEND Orthopaedic Surgery Hand Surgery | DX: M76.61 Achilles tendinitis, right leg (principal) ==

== ENCOUNTER → 2024-04-16 | Outpatient (REF) | payer OTHER, BC ==
[2024-04-16 16:51] LABS: BASO # 0.1 10^3/uL (0.0-0.2); BASO % 0.6 % (0.0-1.0); EOS # 0.2 10^3/uL (0.0-0.5); HEMATOCRIT 38.7 % (36.0-47.0); HEMOGLOBIN 12.7 g/dl (12.0-15.5); LYMPH # 2.2 10^3/uL (1.5-5.0); LYMPH % 24.3 % (24.0-44.0); MEAN CORPUSCULAR HEMOGLOBIN 29.7 pg (27.0-33.0); MEAN CORPUSCULAR HGB CONC 32.8 g/dl (32.0-36.5); MEAN CORPUSCULAR VOLUME 90.4 fl (80.0-96.0); MONO # 0.7 10^3/uL (0.0-0.8); MONO % 7.9 % (2.0-8.0); NEUTROPHILS # 5.8 10^3/uL (1.5-8.5); NEUTROPHILS % 64.2 % (36.0-66.0); PLATELET COUNT, AUTOMATED 326 10^3/uL (150-450); RED BLOOD COUNT 4.28 10^6/uL (4.00-5.40)
[2024-04-16 16:56] LABS: ALBUMIN 3.7 G/DL (3.2-5.2); ALKALINE PHOSPHATASE 48 U/L (46-116); ALT/SGPT 21 U/L (7.0-40); AST/SGOT < 8 U/L (<34); BILIRUBIN,TOTAL 0.2 MG/DL (0.3-1.2); BLOOD UREA NITROGEN 12 MG/DL (9-23); CALCIUM LEVEL 9.5 MG/DL (8.5-10.1); CARBON DIOXIDE LEVEL 31 MMOL/L (20-31); CHLORIDE LEVEL 105 MMOL/L (98-107); CHOLESTEROL LEVEL 173 MG/DL (<200); CHOLESTEROL RISK RATIO 3.97 (<5); CREATININE FOR GFR 0.69 MG/DL (0.55-1.30); GLOMERULAR FILTRATION RATE > 60.0 (>60); GLUCOSE, FASTING 86 MG/DL (60-100); HDL CHOLESTEROL 43.5 MG/DL (>40); LDL CHOLESTEROL 106.3 MG/DL (<100); MAGNESIUM LEVEL 2.2 MG/DL (1.8-2.4); NON-HDL-C 129.5 MG/DL; POTASSIUM SERUM 4.3 MMOL/L (3.5-5.1); SODIUM LEVEL 140 MMOL/L (136-145); TOTAL PROTEIN 7.3 G/DL (5.7-8.2); TRIGLYCERIDES LEVEL 116 MG/DL (<150)
[2024-04-16 16:57] LABS: THYROID STIMULATING HORMONE 1.263 uIU/ML (0.55-4.78); TOTAL 25(OH) VITAMIN D 22.4 NG/ML (20.0-100.0)
[2024-04-16 17:24] LABS: HEMOGLOBIN A1c 5.1 % (4.0-6.0)
== END ==
LOC: M LAB REF 16:23
PROVIDERS: ATTEND Nurse Practitioner Family
DX: E66.01 Morbid (severe) obesity due to excess calories (principal); E55.9 Vitamin D deficiency, unspecified; J02.9 Acute pharyngitis, unspecified